=== PATIENT | male | born 1950 | race American Indian/Alaskan Native ===

== ENCOUNTER 2017-11-27 17:50 | Emergency (ER) | payer MEDICARE ==
[~2017-11-27] VITALS: Ht 185.4 cm; Wt 95.2 kg
[2017-11-27] MEDS ORDERED: ASPI81CH PO (18:20)
[2017-11-27] MEDS ORDERED: ATOR40TA PO (18:20)
[2017-11-27] MEDS ORDERED: OMEGA 3-6-9 11200 MG PO (18:20)
[2017-11-27] MEDS ORDERED: Synthroid50 MCG PO (18:21)
[2017-11-27] MEDS ORDERED: GABA300 PO (18:22)
[2017-11-27] MEDS ORDERED: SERT100 PO (18:22)
[2017-11-27] MEDS ORDERED: TAMS.4ER PO (18:22)
[2017-11-27] MEDS ORDERED: BUPR75 PO (18:22)
[2017-11-27] MEDS ORDERED: OXYB5 PO (18:23)
[2017-11-27] MEDS ORDERED: CYCL10 PO (18:25)
== END 2017-11-27 18:30 | disposition home or self-care (01) ==
LOC: ER 17:50
DX: M54.41 Lumbago with sciatica, right side (principal); Z79.899 Other long term (current) drug therapy; Z79.82 Long term (current) use of aspirin
CPT/HCPCS: 96372; 99283; J1885

== ENCOUNTER 2019-01-31 12:55 | Day surgery (SDC) | payer MEDICARE ==
[~2019-01-31] VITALS: Ht 185.4 cm; Wt 83.1 kg
[~2019-01-31 12:55] MED LIST: ASPI81CH PO; ATOR40TA PO; BUPR75 PO; CYCL10 PO; DOCU100 PO; FINA5 PO; GABA300 PO; OMEGA 3-6-9 11200 MG PO; OMEPRAZOLE MAGN20 MG PO; OXYB5 PO; PAXIL40 MG PO; SERT100 PO; Synthroid50 MCG PO; TAMS.4ER PO; ZOLP10 PO
== END 2019-01-31 14:30 | disposition home or self-care (01) ==
LOC: ORSCSDS 12:55
PROVIDERS: Internal Medicine Gastroenterology
PROC: 0DJD8ZZ Inspection of Lower Intestinal Tract, Via Natural or Artificial Opening Endoscopic (ICD-10-PCS; principal; 2019-01-31 14:15)
PROC: 0DB98ZX Excision of Duodenum, Via Natural or Artificial Opening Endoscopic, Diagnostic (ICD-10-PCS; principal; 2019-01-31 14:15)
PROC: 0DB68ZX Excision of Stomach, Via Natural or Artificial Opening Endoscopic, Diagnostic (ICD-10-PCS; principal; 2019-01-31 14:15)
DX: R10.9 Unspecified abdominal pain (principal); K25.9 Gastric ulcer, unspecified as acute or chronic, without hemorrhage or perforation; K64.1 Second degree hemorrhoids; R63.4 Abnormal weight loss; Z80.0 Family history of malignant neoplasm of digestive organs; F41.8 Other specified anxiety disorders; E03.9 Hypothyroidism, unspecified; F17.290 Nicotine dependence, other tobacco product, uncomplicated; Z79.82 Long term (current) use of aspirin; Z79.899 Other long term (current) drug therapy
CPT/HCPCS: 88305; 88342; J2250; J2704; J7120

== ENCOUNTER 2019-05-05 16:53 | Emergency (ER) | payer OTHER, MEDICARE ==
[~2019-05-05] VITALS: Ht 185.4 cm; Wt 80.7 kg
[2019-05-05] MEDS ORDERED: CEPH500 (17:41)
[2019-05-05] MEDS ORDERED: Sulfamethoxazo1 EAC4 PO (17:41)
[2019-05-05 19:15] LABS: BASOPHILS ABSOLUTE AUTO 0.07 K/mm3 (0.00-0.23); BASOPHILS PERCENT AUTO 1 % (0-2); EOSINOPHILS ABSOLUTE AUTO 0.16 K/mm3 (0.00-0.68); EOSINOPHILS PERCENT AUTO 3 % (0-6); Hematocrit 45.2 % (37.0-53.0); Hemoglobin 15.5 g/dL (13.5-17.5); IMMATURE GRAN ABSOLUTE AUTO 0.01 K/mm3 (0.00-0.10); IMMATURE GRAN PERCENT AUTO 0 % (0-1); LYMPHOCYTES ABSOLUTE AUTO 1.81 K/mm3 (0.84-5.20); LYMPHOCYTES PERCENT AUTO 31 % (21-46); MONOCYTES ABSOLUTE AUTO 0.42 K/mm3 (0.16-1.47); MONOCYTES PERCENT AUTO 7 % (4-13); Mean Corpuscular HGB 31.6 pg (26.0-34.0); Mean Corpuscular HGB Conc 34.3 g/dL (31.5-36.5); Mean Corpuscular Volume 92 fL (80-100); Mean Platelet Volume 10.5 fL (9.1-12.4); NEUTROPHILS ABSOLUTE AUTO 3.29 K/mm3 (1.96-9.15); NEUTROPHILS PERCENT AUTO 57 % (41-73); Platelet Count 194 K/mm3 (150-400); RDW Coefficient Variation 13.2 % (11.7-14.2); RDW Standard Deviation 44.7 fL (35.1-46.3); Red Blood Cell Count 4.91 M/mm3 (4.30-5.90); White Blood Cell Count 5.76 K/mm3 (4.00-11.30)
[2019-05-05 19:32] LABS: Alanine Aminotransfer (ALT/SGP 19 U/L (12-78); Albumin, Blood 3.6 g/dL (3.4-5.0); Alk Phos 68 U/L (50-136); Anion Gap 7 mmol/L (6-16); Aspartate Aminotrans (AST/SGOT 15 U/L (12-37); Bilirubin, Total 0.3 mg/dL (0.1-1.0); Blood Urea Nitrogen 14 mg/dL (8-24); Bun/Creatinine Ratio 13.7 (12.0-20.0); CO2, Blood 22 mmol/L (21-32); Calcium, Blood 8.9 mg/dL (8.5-10.1); Chloride, Blood 111 mmol/L (98-108); Creatinine, Blood 1.02 mg/dL (0.60-1.20); Globulin, Blood 3.5 g/dL (2.2-4.0); Glomerular Filtration Rate >60 (60-); Glucose, Blood 85 mg/dL (70-99); Potassium, Blood 4.1 mmol/L (3.5-5.5); Sodium, Blood 140 mmol/L (136-145); Total Protein, Blood 7.1 g/dL (6.4-8.2)
[2019-05-05] MEDS ORDERED: Cleocin HCl150 MG PO (19:48)
== END 2019-05-05 20:17 | disposition home or self-care (01) ==
LOC: ER 16:53
PROVIDERS: Physician Assistant
DX: L03.311 Cellulitis of abdominal wall (principal); F32.9 Major depressive disorder, single episode, unspecified; E03.9 Hypothyroidism, unspecified; K21.9 Gastro-esophageal reflux disease without esophagitis; Z79.899 Other long term (current) drug therapy
CPT/HCPCS: 36415; 80053; 85025; 96365; 99283-25

== ENCOUNTER 2020-03-07 12:31 | Day surgery (SDC) | payer MEDICARE ==
[~2020-03-07] VITALS: Ht 185.4 cm; Wt 90.0 kg
[~2020-03-07 12:31] MED LIST changes: +CEPH500; +Cleocin HCl150 MG PO; +Sulfamethoxazo1 EAC4 PO
[2020-03-07] MEDS ORDERED: LINZESS290 MCG (12:58)
== END 2020-03-07 14:40 | disposition home or self-care (01) ==
LOC: ORSCSDS 12:31
PROVIDERS: Internal Medicine Gastroenterology
PROC: 0DJD8ZZ Inspection of Lower Intestinal Tract, Via Natural or Artificial Opening Endoscopic (ICD-10-PCS; principal; 2020-03-07 13:45)
DX: K59.00 Constipation, unspecified (principal); K64.8 Other hemorrhoids; Z80.0 Family history of malignant neoplasm of digestive organs; E03.9 Hypothyroidism, unspecified; F41.8 Other specified anxiety disorders; F17.210 Nicotine dependence, cigarettes, uncomplicated; Z79.899 Other long term (current) drug therapy
CPT/HCPCS: J2704; J7120